=== PATIENT | female | born 1950 | race Caucasian/White ===

== ENCOUNTER 2021-07-18 07:48 | Emergency (ER) | payer MEDICARE, MEDICAID ==
[~2021-07-18] VITALS: Ht 160 cm; Wt 72.6 kg
[2021-07-18] MEDS ORDERED: NORTRIPTYLINE H10 MG PO (08:02)
[2021-07-18] MEDS ORDERED: PRAVASTATIN SOD40 MG PO (08:02)
[2021-07-18] MEDS ORDERED: ALLOPURINOL100 MG PO (08:03)
[2021-07-18] MEDS ORDERED: CARTIA XT180 MG PO (08:03)
[2021-07-18] MEDS ORDERED: SERTRALINE HCL50 MG PO (08:03)
[2021-07-18] MEDS ORDERED: LISINOPRIL40 MG PO (08:04)
[2021-07-18] MEDS ORDERED: OMEPRAZOLE20 MG PO (08:05)
[2021-07-18] MEDS ORDERED: ONDANSETRON ODT4 MG PO (15:06)
[2021-07-18] MEDS ORDERED: HYDROCODON-ACE1 EA10 PO (15:06)
== END 2021-07-18 16:20 | disposition home or self-care (01) ==
LOC: ED 07:48
DX: K85.90 Acute pancreatitis without necrosis or infection, unspecified (principal); K26.9 Duodenal ulcer, unspecified as acute or chronic, without hemorrhage or perforation; R74.8 Abnormal levels of other serum enzymes; Z20.822 Contact with and (suspected) exposure to COVID-19; Z88.8 Allergy status to other drugs, medicaments and biological substances; Z88.5 Allergy status to narcotic agent; Z79.899 Other long term (current) drug therapy
CPT/HCPCS: 74177; 76705; 80053; 81001; 83690; 85025; 96375; 96376; 99284-25; C9113; C9803; J1170; J1885; J7030; Q9967; U0003

== ENCOUNTER 2022-02-10 17:24 | Emergency (ER) | payer MEDICARE, OTHER, MEDICAID ==
[~2022-02-10] VITALS: Ht 160 cm; Wt 72.6 kg
[~2022-02-10 17:24] MED LIST: ALLOPURINOL100 MG PO; CARTIA XT180 MG PO; HYDROCODON-ACE1 EA10 PO; LISINOPRIL40 MG PO; NORTRIPTYLINE H10 MG PO; OMEPRAZOLE20 MG PO; ONDANSETRON ODT4 MG PO; PRAVASTATIN SOD40 MG PO; SERTRALINE HCL50 MG PO
--- NOTE | 2022-02-12 17:09 | EKG ---
[facility] [address] [place], [place] [address] Signed Sinus tachycardia Nonspecific ST abnormality Abnormal ECG No previous ECGs available Confirmed by ASHUTOSH JAMIL MD ([id number]) on 02/12/2022 5:09:26 PM Electronically Signed By: ASHUTOSH JAMIL MD 02/12/22 1709 PATIENT NAME: TERI LEIVA Electrocardiogram DATE OF : 52 PHYSICIAN: ASHUTOSH JAMIL MD REPORT #: [id number] REPORT IS CONFIDENTIAL AND NOT TO BE RELEASED WITHOUT AUTHORIZATION
== END 2022-02-10 22:00 | disposition short-term general hospital (02) ==
LOC: ED 17:24
DX: S72.492A Other fracture of lower end of left femur, initial encounter for closed fracture (principal); Z88.5 Allergy status to narcotic agent; Z88.8 Allergy status to other drugs, medicaments and biological substances; Z79.899 Other long term (current) drug therapy; W22.8XXA Striking against or struck by other objects, initial encounter; Z20.822 Contact with and (suspected) exposure to COVID-19
CPT/HCPCS: 36415; 51702; 71045; 73552; 73560; 80053; 81001; 85025; 93005; 93010; 99285-25; C9803; J1170; J3010; J7040; U0003